=== PATIENT | female | born 1970 | race Caucasian/White ===

== ENCOUNTER 2019-12-22 08:07 | Outpatient (CLI) | payer OTHER ==
--- NOTE | 2019-12-22 09:03 | ULT ---
Sonogram right upper quadrant HISTORY: Right upper quadrant pain. FINDINGS: The gallbladder has a normal appearance. No stones visible. Common duct is 0.3 cm. Liver unremarkable without focal mass or intrahepatic biliary dilatation. No free fluid. IMPRESSION: Normal exam.
== END 2019-12-22 08:08 | disposition home or self-care (01) ==
LOC: SCSULT 08:07
PROVIDERS: ATTEND Physician Assistant
DX: R10.11 Right upper quadrant pain (principal)
CPT/HCPCS: 76705